=== PATIENT | female | born 1995 | race Two or more races ===

== ENCOUNTER 2019-01-06 18:30 | Emergency (ER) | payer OTHER ==
[2019-01-06] MEDS ORDERED: ALPRAZOLAM 0.5 MG TABLET PO ONE (19:45)
[2019-01-06 20:42] LABS: BASOPHILS % 0.5 % (0.0-2.0); EOSINOPHILS % 6.7 % (0.0-5.0); HEMOGLOBIN. 14.9 g/dL (12.0-16.0); LYMPHOCYTES % 32.4 % (20.0-50.0); MEAN CORPUSCULAR VOLUME 88.5 fL (81.0-99.0); MEAN PLATELET VOLUME 9.8 fl (7.4-10.4); MONOCYTES % 9.5 % (2.0-8.0); NEUTROPHILS % 50.9 % (40.0-76.0); PLATELET 228 x1000/uL (130-400); RED BLOOD CELL COUNT 4.97 mill/uL (4.2-5.4); RED CELL DISTRIBUTION WIDTH 13.4 % (11.6-14.6)
[2019-01-06 20:49] LABS: CHLORIDE 107 mEq/L (98-107)
[2019-01-06 23:00] VITALS: BP 116/84
== END 2019-01-07 00:06 | disposition home or self-care (01) ==
LOC: ER 18:30
DX: R20.2 Paresthesia of skin (principal); H53.8 Other visual disturbances; E16.2 Hypoglycemia, unspecified; R51 Headache; R00.2 Palpitations; Z90.49 Acquired absence of other specified parts of digestive tract; Z91.013 Allergy to seafood
CPT/HCPCS: 36415; 81025; 83880; 84484; 93005; 99284

== ENCOUNTER 2019-11-10 12:24 | Emergency (ER) | payer OTHER ==
[~2019-11-10] VITALS: Ht 160 cm; Wt 90.0 kg
[2019-11-10 12:27] VITALS: BP 150/78
[2019-11-10] MEDS ORDERED: TETRACAINE 0.5% OPHTH DROPS 4ML LEFTEYE ONE (15:45)
[2019-11-10] MEDS ORDERED: FLUORESCEIN SODIUM 1MG/STRIP LEFTEYE ONE (15:45)
== END 2019-11-10 16:50 | disposition home or self-care (01) ==
LOC: ER 12:34
DX: H01.006 Unspecified blepharitis left eye, unspecified eyelid (principal); Z91.013 Allergy to seafood; Z90.49 Acquired absence of other specified parts of digestive tract
CPT/HCPCS: 99283